=== PATIENT | male | born 1970 | race Caucasian/White ===

== ENCOUNTER → 2020-08-03 10:26 | Outpatient (BNVA) | payer MEDICARE, MEDICAID, SELFPAY | PROVIDERS: Family Provider Family Medicine; Visit Provider Family Medicine | DX: E78.5 Hyperlipidemia, unspecified (principal); Z23 Encounter for immunization; F33.1 Major depressive disorder, recurrent, moderate; K21.9 Gastro-esophageal reflux disease without esophagitis; G43.709 Chronic migraine without aura, not intractable, without status migrainosus; E78.2 Mixed hyperlipidemia; Z87.898 Personal history of other specified conditions; Z13.1 Encounter for screening for diabetes mellitus; K86.89 Other specified diseases of pancreas | CPT/HCPCS: 80053; 80061 ==

== ENCOUNTER → 2021-05-16 08:31 | Outpatient (BNVA) | payer MEDICARE, MEDICAID, SELFPAY | PROVIDERS: Family Provider Family Medicine; Visit Provider Specialist | DX: G56.03 Carpal tunnel syndrome, bilateral upper limbs (principal); G56.23 Lesion of ulnar nerve, bilateral upper limbs | CPT/HCPCS: 95885; 95910; 99202 ==

== ENCOUNTER → 2021-08-28 10:45 | Outpatient (BNVA) | payer MEDICARE, MEDICAID, SELFPAY | PROVIDERS: Family Provider Family Medicine; Visit Provider Family Medicine | DX: E78.2 Mixed hyperlipidemia (principal); Z13.1 Encounter for screening for diabetes mellitus | CPT/HCPCS: 80053; 80061 ==

== ENCOUNTER 2023-08-11 20:00 | Outpatient (CLI) | payer MEDICARE, MEDICAID, SELFPAY | END 2023-08-11 20:01 | disposition home or self-care (01) | LOC: SLEEP 08-12 06:14 | PROVIDERS: Family Provider Family Medicine; Visit Provider Family Medicine | DX: G47.10 Hypersomnia, unspecified (principal); R06.83 Snoring; R53.83 Other fatigue | CPT/HCPCS: 95810 ==

== ENCOUNTER 2023-12-16 13:07 | Emergency (ER) | payer MEDICARE, MEDICAID, SELFPAY ==
[2023-12-16] VITALS (33 sets, daily range): BP systolic 117–158; BP diastolic 68–95; PULSE 93–115; RESP 14–29; TEMP 36.8; O2SAT 90–94; BMI 25.1
--- NOTE | 2023-12-16 13:08 | XRR_ITS ---
PROCEDURE INFORMATION: Exam: XR Chest Exam date and time: 12/16/2023 1:37 PM Age: 53 years old Clinical indication: Pain; Angina pectoris; Additional info: Chest pain TECHNIQUE: Imaging protocol: Radiologic exam of the chest. Views: 1 view. COMPARISON: No relevant prior studies available. FINDINGS: Lungs: Left lung grossly clear. Pleural spaces: Large right pneumothorax with near total collapse of the right lung. Heart/Mediastinum: Leftward mediastinal shift and probable mild right hemidiaphragm flattening. Bones/joints: No acute findings. XR/XR chest 1V portable [id number] IMPRESSION: Large right pneumothorax with leftward mediastinal shift suggesting tension.
--- NOTE | 2023-12-16 13:09 | ECG_ITS ---
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 Measurements Intervals [place] Rate: 98 P: 93 [place]: 123 QRS: 39 QRSD: 89 T: 61 QT: 362 QTc: 464 Interpretive Statements SINUS RHYTHM NONSPECIFIC T-WAVE ABNORMALITY No previous ECG available for comparison Electronically Signed On 12-16-2023 19:52:51 ACADEMIC SPECIALIST by Robby Boykin M.D. [id number]
--- NOTE | 2023-12-16 13:13 | ED_ITS ---
Documented by User: BROOKE Cordero 12/16/23 16:03 HPI - URI/Sore Throat 2 General: Chief Complaint: Upper Respiratory Infection Stated Complaint: CHEST PAIN Time Seen by Provider: 12/16/23 13:08 Source: patient and EMS Mode of arrival: EMS Limitations: no limitations History of Present Illness: Patient is a 53-year-old male who presents to ED today with a complaint of right upper chest pain present only when coughing. Patient states he has had a cough over the past 2 to 3 weeks. He states he saw his primary care provider today Dr. Gray who recommended he come to the ED for further testing and told him he has pneumonia. EMS reports that patient went home and then called 911 to bring him to the emergency department. Upon arrival patient appears in no acute distress. He denies previous cardiac or pulmonary history. He does report he was around a niece of his with similar cough like symptoms. He has not been running fevers. He has had the right chest pain for about 3-4 days now. PMH is significant for allergies and acid reflux. MD elicited complaint: cough and other (chest pain) Onset (ago): day(s) Consistency: intermittent (chest pain only with coughing) Severity: moderate Able to tolerate fluids by mouth: Yes Exacerbating factors: other (coughing) Relieving factors: nothing Context: sick contacts Associated symptoms: Reports chest pain and cough; Deny abdominal pain, chills, diarrhea, fever(s), headache(s), nasal congestion, nausea, sinus pain or vomiting Treatments prior to arrival: none Review of Systems 2 Const: Denies: fever(s), chills, body aches, fatigue or malaise ENMT: Denies: throat pain, odynophagia, nasal discharge, nasal congestion or sinus pain Card: Reports: chest pain; Denies: palpitations, irregular heart rhythm, edema, swelling of feet/ankles, lightheadedness, syncope, pre-syncope, dyspnea on exertion, orthopnea, leg pain with exertion or acrocyanosis Resp: Reports: non-productive cough and chest congestion; Denies: dyspnea, wheezing, stridor or hemoptysis GI: Denies: abdominal pain, nausea, vomiting or diarrhea : Denies: flank pain, dysuria or hematuria Musc: Denies: neck pain, back pain, extremity pain or joint pain Skin/Breast: Denies: rash Neuro: Denies: headache(s), numbness in extremities, weakness in extremities, sensory changes or dizziness PFSH ED 2 PFSH: Medical History Chronic migraine Hyperlipidemia Major depression GERD (gastroesophageal reflux disease) Family History Other Cancer Heart disease Social History Smoking and tobacco/nicotine status: never used tobacco/nicotine Alcohol intake: never Substance/Drug Use: never Physical Exam 2 Const: COMMON NORMALS: no acute distress, average body habitus, patient oriented x3, no limitations, alert and well nourished GENERAL APPEARANCE: c ooperative ORIENTATION/CONSCIOUSNESS: Yes awake, Yes oriented to person, Yes oriented to place and Yes oriented to time HENMT: COMMON NORMALS: normocephalic and atraumatic HEAD & SCALP: normal to inspection, normocephalic and atraumatic FACE & SINUS: normal facial exam and sinuses nontender Eye: GENERAL EYE: appearance normal, both eyes and all related structures Neck/C-Spine: COMMON NORMALS: full ROM, no lymphadenopathy, supple and no meningeal signs Chest: COMMONS NORMALS: normal inspection of the chest and normal palpation of entire chest wall Resp: COMMON NORMALS: normal respiratory effort AUSCULTATION: diminished lung sounds on the right (absent lung sounds throughout R side concerning for pneumo) Cardio: COMMON NORMALS: regular rate and regular rhythm RATE: regular rate RHYTHM: regular rhythm GI: COMMON NORMALS: Normal to inspection, nondistended, normoactive bowel sounds present, Soft to palpation, non-tender, No hepatosplenomegaly present and no masses PALPATION: Yes Soft to palpation and Yes No hepatosplenomegaly present : COMMON NORMALS: Yes no CVA tenderness BLADDER/KIDNEY EXAM: Yes no CVA tenderness Back/Pelvis: COMMON NORMALS: no CVA tenderness and thoracic and lumbar spine normal to inspection Extremity: COMMON NORMALS: normal to inspection, capillary refill normal, no clubbing, cyanosis or edema, no calf tenderness and no pedal edema GENERAL: Y es normal exam except as noted Neuro: COMMON NORMALS: patient oriented x3, moves all extremities, no focal motor deficits and no sensory deficits noted SENSORIUM/ORIENTATION: Yes alert, Yes oriented to person, Yes oriented to place and Yes oriented to time MENINGEAL SIGNS: Yes no meningeal signs Skin: COMMON NORMALS: no rashes or lesions noted GENERAL SKIN EXAM: no rashes or lesions noted Course 2 Consultations: Consultation #1: [facility] accepts direct admission; admitting physician is Dr. Kay Vital Signs: Vital signs: Vital Signs Temperature 98.3 F 12/16/23 13:09 Pulse Rate 110 H 12/16/23 14:49 Respiratory Rate 14 12/16/23 14:37 Blood Pressure 133/76 12/16/23 14:49 Pulse Oximetry 94 12/16/23 14:49 Oxygen Delivery Me thod Room Air 12/16/23 14:49 MDM - URI/Sore Throat Medical Decision Making Patient is a 53-year-old male here for a right-sided pneumothorax/tension pneumo. Thoravent placed by Dr. Powell. Please see his documentation regarding procedure. 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 Lab Data 12/16/23 13:21 12/16/23 13:21 Laboratory Results WBC 7.08 10^3/uL (3.29-11.43) 12/16/23 13:21 RBC 5.46 10^6/uL (3.85-5.65) 12/16/23 13:21 Hgb 15.60 g/dL (11.27-16.99) 12/16/23 13:21 Hct 47.0 % (37-53) 12/16/23 13:21 MCV 86.1 fl (82-101) 12/16/23 13:21 MCH 28.6 pg (27-33) 12/16/23 13:21 MCHC 33.2 g/dL (30-55) 12/16/23 13:21 RDW 14.2 % (12.1-15.1) 12/16/23 13:21 Plt Count 404 10^3/cmm (157-399) H 12/16/23 13:21 MPV 9.4 fL (7.4-10.4) 12/16/23 13:21 Neut % (Auto) 73.7 % 12/16/23 13:21 Lymph % (Auto) 13.3 % 12/16/23 13:21 [place] % (Auto) 11.0 % 12/16/23 13:21 Eos % (Auto) 1.3 % 12/16/23 13:21 Baso % (Auto) 0.4 % 12/16/23 13:21 Neut # (Auto) 5.22 10^3/uL (1.8-7.7) 12/16/23 13:21 Lymph # (Auto) 0.9 10^3/uL (0.8-4.8) 12/16/23 13:21 [place] # (Auto) 0.8 10^3/uL (0.2-0.9) 12/16/23 13:21 Eos # (Auto) 0.1 10^3/uL (0.0-0.8) 12/16/23 13:21 Baso # (Auto) 0.0 10^3/uL (0.0-0.1) 12/16/23 13:21 Nucleated RBC % (auto) 0 % 12/16/23 13:21 Nucleated RBCs # 0.0 /100WBC 12/16/23 13:21 Sodium 137 mmol/L (136-145) 12/16/23 13:21 Potassium 4.1 mmol/L (3.5-5.1) 12/16/23 13:21 Chloride 102 mmol/L (98-107) 12/16/23 13:21 Carbon Dioxide 23 mmol/L (22-29) 12/16/23 13:21 Anion Gap 16.1 (5-19) 12/16/23 13:21 BUN 13 mg/dL (6-20) 12/16/23 13:21 Creatinine 0.6 mg/dL (0.7-1.2) L 12/16/23 13:21 GFR Calculation 142.0 mL/min (90-130) H 12/16/23 13:21 Glucose 119 mg/dL (65-115) H 12/16/23 13:21 Calculated Osmolality 285 mOsm/kg (285-295) 12/16/23 13:21 Calcium 9.2 mg/dL (8.5-10.5) 12/16/23 13:21 Total Bilirubin 0.5 mg/dL (0.15-1.2) 12/16/23 13:21 AST 22 U/L (0-40) 12/16/23 13:21 ALT 27 U/L (0-41) 12/16/23 13:21 Alkaline Phosphatase 65 U/L (40-130) 12/16/23 13:21 Troponin T Baseline < 6 ng/L (0-15) 12/16/23 13:21 Total Protein 6.6 g/dL (6.6-8.7) 12/16/23 13:21 Albumin 3.9 g/dL (3.5-5.2) 12/16/23 13:21 Globulin 2.7 g/dL (1.3-4.6) 12/16/23 13:21 All radiology interpretation(s) finalized by discharge Discharge Plan Discharge Patient Disposition: Xfer Short-Term Hosp Clinical Impression: Pneumothorax Qualifiers: Pneumothorax type: unspecified pneumothorax Qualified Code(s): J93.9 - Pneumothorax, unspecified Condition: Stable Referrals: Berta Quan MD [Physician] - Coding Level of Care Code ED Junior Technical Writer for Chg Fwd Documented by User: Megan Powell MD 12/16/23 16:10 HPI - URI/Sore Throat 2 General: Chief Complaint: Upper Respiratory Infection Stated Complaint: CHEST PAIN Time Seen by Provider: 12/16/23 13:08 PFS ED 2 PFSH: Medical History Chronic migraine Hyperlipidemia Major depression GERD (gastroesophageal reflux disease) Family History Other Cancer Heart disease Social History Smoking and tobacco/nicotine status: never used tobacco/nicotine Alcohol intake: never Substance/Drug Use: never Procedures Chest Tube Chest Tube 1: Chest Tube Location: right Size of Tube (cm): 13 Chest Tube Prep: Yes betadine prep Amount of anesthesia used (mL): 5 Incision Made With: #11 blade Post Procedure CXR?: Yes Patient Tolerated Procedure: Yes Progress: thoracvent placed in midclavicular line second intercostal space Course 2 Vital Signs: Vital signs: Vital Signs Temperature 98.3 F 12/16/23 13:09 Pulse Rate 110 H 12/16/23 14:49 Respiratory Rate 14 12/16/23 14:37 Blood Pressure 133/76 12/16/23 14:49 Pulse Oximetry 94 12/16/23 14:49 Oxygen Delivery Me thod Room Air 12/16/23 14:49 MDM - URI/Sore Throat Medical Decision Making Patient is a 53-year-old male here for a right-sided pneumothorax/tension pneumo. Thoravent placed by Dr. Powell. Please see his documentation regarding procedure. Patient has been accepted to 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 I had seen patient with midlevel I placed a Thora vent here with good reexpansion of his lung will transfer due to no one available to manage the chest tube here Lab Data 12/16/23 13:21 12/16/23 13:21 Laboratory Results WBC 7.08 10^3/uL (3.29-11.43) 12/16/23 13:21 RBC 5.46 10^6/uL (3.85-5.65) 12/16/23 13:21 Hgb 15.60 g/dL (11.27-16.99) 12/16/23 13:21 Hct 47.0 % (37-53) 12/16/23 13:21 MCV 86.1 fl (82-101) 12/16/23 13:21 MCH 28.6 pg (27-33) 12/16/23 13:21 MCHC 33.2 g/dL (30-55) 12/16/23 13:21 RDW 14.2 % (12.1-15.1) 12/16/23 13:21 Plt Count 404 10^3/cmm (157-399) H 12/16/23 13:21 MPV 9.4 fL (7.4-10.4) 12/16/23 13:21 Neut % (Auto) 73.7 % 12/16/23 13:21 Lymph % (Auto) 13.3 % 12/16/23 13:21 [place] % (Auto) 11.0 % 12/16/23 13:21 Eos % (Auto) 1.3 % 12/16/23 13:21 Baso % (Auto) 0.4 % 12/16/23 13:21 Neut # (Auto) 5.22 10^3/uL (1.8-7.7) 12/16/23 13:21 Lymph # (Auto) 0.9 10^3/uL (0.8-4.8) 12/16/23 13:21 [place] # (Auto) 0.8 10^3/uL (0.2-0.9) 12/16/23 13:21 Eos # (Auto) 0.1 10^3/uL (0.0-0.8) 12/16/23 13:21 Baso # (Auto) 0.0 10^3/uL (0.0-0.1) 12/16/23 13:21 Nucleated RBC % (auto) 0 % 12/16/23 13:21 Nucleated RBCs # 0.0 /100WBC 12/16/23 13:21 Sodium 137 mmol/L (136-145) 12/16/23 13:21 Potassium 4.1 mmol/L (3.5-5.1) 12/16/23 13:21 Chloride 102 mmol/L (98-107) 12/16/23 13:21 Carbon Dioxide 23 mmol/L (22-29) 12/16/23 13:21 Anion Gap 16.1 (5-19) 12/16/23 13:21 BUN 13 mg/dL (6-20) 12/16/23 13:21 Creatinine 0.6 mg/dL (0.7-1.2) L 12/16/23 13:21 GFR Calculation 142.0 mL/min (90-130) H 12/16/23 13:21 Glucose 119 mg/dL (65-115) H 12/16/23 13:21 Calculated Osmolality 285 mOsm/kg (285-295) 12/16/23 13:21 Calcium 9.2 mg/dL (8.5-10.5) 12/16/23 13:21 Total Bilirubin 0.5 mg/dL (0.15-1.2) 12/16/23 13:21 AST 22 U/L (0-40) 12/16/23 13:21 ALT 27 U/L (0-41) 12/16/23 13:21 Alkaline Phosphatase 65 U/L (40-130) 12/16/23 13:21 Troponin T Baseline < 6 ng/L (0-15) 12/16/23 13:21 Total Protein 6.6 g/dL (6.6-8.7) 12/16/23 13:21 Albumin 3.9 g/dL (3.5-5.2) 12/16/23 13:21 Globulin 2.7 g/dL (1.3-4.6) 12/16/23 13:21 Critical Care Time 2 Critical Care Time: Critical Care Time: Yes Total Critical Care Time: 35 Attestation: The high probability of a clinically significant, sudden or life threatening deterioration of the patient's resp system(s) required my full and direct attention, intervention and personal management. The critical care time is as shown. This time is in addition to time spent performing any reported procedures but includes the following: [x] Data and vital sign review and interpretation [x] Patient assessment, examination and intervention [x] Documentation [x] Medication orders and management Discharge Plan Discharge Patient Disposition: Xfer Short-Term Hosp Clinical Impression: Pneumothorax Qualifiers: Pneumothorax type: unspecified pneumothorax Qualified Code(s): J93.9 - Pneumothorax, unspecified Condition: Stable Referrals: Berta Quan MD [Physician] - Coding Level of Care Code ED Junior Technical Writer for Ashish Gonzales
[2023-12-16 13:35] LABS: Basophils % 0.4 %; Eosinophils # 0.1 10^3/uL (0.0-0.8); Eosinophils % 1.3 %; Lymphocytes # 0.9 10^3/uL (0.8-4.8); Lymphocytes % 13.3 %; Mean Corpuscular HGB Conc 33.2 g/dL (30-55); Mean Corpuscular Hemoglobin 28.6 pg (27-33); Mean Corpuscular Volume 86.1 fl (82-101); Mean Platelet Volume 9.4 fL (7.4-10.4); Monocytes # 0.8 10^3/uL (0.2-0.9); Neutrophils # 5.22 10^3/uL (1.8-7.7); Neutrophils % 73.7 %; Nucleated Red Blood Cells % 0 %; Platelet Count 404 10^3/cmm (157-399); Red Blood Count 5.46 10^6/uL (3.85-5.65); Red Cell Distribution Width 14.2 % (12.1-15.1); White Blood Count 7.08 10^3/uL (3.29-11.43)
[2023-12-16 13:47] LABS: Troponin(5th) Baseline < 6 ng/L (0-15)
[2023-12-16 13:57] LABS: Alanine Aminotransferase 27 U/L (0-41); Albumin Level 3.9 g/dL (3.5-5.2); Alkaline Phosphatase 65 U/L (40-130); Anion Gap 16.1 (5-19); Aspartate Amino Transferase 22 U/L (0-40); Blood Urea Nitrogen 13 mg/dL (6-20); Calcium 9.2 mg/dL (8.5-10.5); Carbon Dioxide 23 mmol/L (22-29); Chloride 102 mmol/L (98-107); Globulin 2.7 g/dL (1.3-4.6); Glucose 119 mg/dL (65-115); Osmolality Calculated 285 mOsm/kg (285-295); Potassium 4.1 mmol/L (3.5-5.1); Sodium 137 mmol/L (136-145); Total Bilirubin 0.5 mg/dL (0.15-1.2); Total Protein 6.6 g/dL (6.6-8.7)
--- NOTE | 2023-12-16 14:34 | XRR_ITS ---
PROCEDURE INFORMATION: Exam: XR Chest Exam date and time: 12/16/2023 2:41 PM Age: 53 years old Clinical indication: Device placement; Other: Post chest tube; Prior surgery; Surgery date: Post-operative (0-2 days) TECHNIQUE: Imaging protocol: Radiologic exam of the chest. Views: 2 views. COMPARISON: CR XR chest 1V portable [id number] 12/16/2023 1:37 PM FINDINGS: Interval placement of right-sided chest tube. Lungs: No consolidation. Pleural spaces: Improved right pneumothorax now small and approximately 2 cm from the apex chest wall. Heart/Mediastinum: Slightly less conspicuous leftward mediastinal deviation although this may be accounted for by patient positioning. Bones/joints: No acute findings. XR/XR chest 2V* [id number] IMPRESSION: Small residual right apical pneumothorax status post chest tube placement.
[2023-12-16] MEDS: LORazepam 2 mg/mL INJ 10 mL MDV 1 MG IVP (14:36)
[2023-12-16] MEDS: morphine 4 mg/mL SDV 1 mL IVP (14:37)
--- NOTE | 2023-12-16 15:09 | ECG_ITS ---
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 Measurements Intervals [place] Rate: 109 P: 31 VT: 120 QRS: 2 QRSD: 89 T: 40 QT: 335 QTc: 451 Interpretive Statements SINUS TACHYCARDIA NONSPECIFIC T-WAVE ABNORMALITY ABNORMAL RHYTHM ECG Compared to ECG 12/16/2023 13:23:13 Sinus rhythm no longer present T-wave abnormality still present Electronically Signed On 12-16-2023 20:17:20 CLINICAL CYTOGENETICIST SCIENTIST by Robby Boykin M.D. [id number]
[2023-12-16 16:40] LABS: Adenovirus Not Detected (NOT DETECT); Chlamydia Pneumoniae Not Detected (NOT DETECT); Coronavirus 229E,HKU1,NL63,OC4 Not Detected (NOT DETECT); Human Metapneumovirus Not Detected (NOT DETECT); Human Rhinovirus/Enterovirus Not Detected (NOT DETECT); Influenza A Not Detected (NOT DETECT); Influenza A H1 Not Detected (NOT DETECT); Influenza A H1-2009 Not Detected (NOT DETECT); Influenza A H3 Not Detected (NOT DETECT); Influenza B Not Detected (NOT DETECT); Mycoplasma Pneumoniae Not Detected (NOT DETECT); Parainfluenza Virus Type 1 Not Detected (NOT DETECT); Parainfluenza Virus Type 2 Not Detected (NOT DETECT); Parainfluenza Virus Type 3 Not Detected (NOT DETECT); Parainfluenza Virus Type 4 Not Detected (NOT DETECT); Respiratory Syncytial Virus A Not Detected (NOT DETECT); SARS-COV-2 Not Detected (NOT DETECT)
[2023-12-16 16:51] LABS: Respiratory Syncytial Virus B Detected (NOT DETECT)
[2023-12-16 17:15] LABS: Troponin 5 2HR Delta 0.00001 ABS# (0-10)
--- NOTE | 2023-12-16 18:51 | XRR_ITS ---
PROCEDURE INFORMATION: Exam: XR Chest Exam date and time: 12/16/2023 6:55 PM Age: 53 years old Clinical indication: Device placement; Chest tube; Additional info: Re-eval thoravent TECHNIQUE: Imaging protocol: Radiologic exam of the chest. Views: 1 view. COMPARISON: CR XR chest 2V* [id number] 16/12/2023 14:41 FINDINGS: Tubes, catheters and devices: Stable right pleural drain. Lungs: Stable probable discoid atelectasis transversing the right mid lung. No consolidation. Pleural spaces: Slightly improved small right apical pneumothorax. Heart/Mediastinum: Unremarkable. No cardiomegaly. Bones/joints: Unremarkable. XR/XR chest 1V portable [id number] IMPRESSION: 1. Slightly improved small right apical pneumothorax.
--- NOTE | 2023-12-16 19:09 | ECG_ITS ---
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 Measurements Intervals [place] Rate: 104 P: 48 [place]: 139 QRS: 10 QRSD: 85 T: 50 QT: 346 QTc: 456 Interpretive Statements SINUS TACHYCARDIA POSSIBLE LEFT ATRIAL ENLARGEMENT [-0.1mV P-WAVE IN V1/V2] NONSPECIFIC T-WAVE ABNORMALITY ABNORMAL RHYTHM ECG Compared to ECG 12/16/2023 16:20:56 No significant changes Electronically Signed On 12-16-2023 20:19:12 DRONE PILOT by Robby Boykin M.D. [id number]
[2023-12-16 20:10] LABS: Troponin 5 6HR Delta 0.00001 ng/L (0-12)
[2023-12-17] VITALS: BP 135/84; PULSE 117; RESP 27; O2SAT 91
[2023-12-17 00:15] VITALS: BP 138/84; PULSE 118; RESP 26; O2SAT 91
[2023-12-17 00:30] VITALS: BP 145/77; PULSE 117; RESP 30; O2SAT 90
[2023-12-17 00:45] VITALS: BP 144/102; PULSE 107; RESP 31; O2SAT 91
[2023-12-17 01:00] VITALS: BP 144/89; PULSE 112; RESP 29
[2023-12-17 01:11] VITALS: BP 132/95; PULSE 108; RESP 24; O2SAT 92
== END 2023-12-17 01:22 | disposition short-term general hospital (02) ==
PROVIDERS: Emergency Provider Physician Assistant
DX: J93.9 Pneumothorax, unspecified (principal); E78.5 Hyperlipidemia, unspecified
CPT/HCPCS: 32551; 36415; 71045; 71046; 80053; 84484; 85025; 87486; 87581; 87633; 93005; 96374; 96375; 99285; J2060; J2270

== ENCOUNTER 2024-05-07 21:03 | Emergency (ER) | payer MEDICARE, MEDICAID, SELFPAY ==
[2024-05-07 21:04] VITALS: BP 139/92; PULSE 85; RESP 16; TEMP 37.1; O2SAT 97; BMI 25.1
--- NOTE | 2024-05-07 21:08 | ECG_ITS ---
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 Measurements Intervals [place] Rate: 72 P: 19 VT: 151 QRS: -5 QRSD: 94 T: 34 QT: 369 QTc: 406 Interpretive Statements SINUS RHYTHM MODERATE ST DEPRESSION [0.05+ mV ST DEPRESSION] Compared to ECG 12/16/2023 19:11:57 ST (T wave) deviation now present Sinus tachycardia no longer present T-wave abnormality no longer present Electronically Signed On 05-08-2024 21:34:25 CDT by Aleksander Barksdale M.D. [id number]
--- NOTE | 2024-05-07 21:30 | XRR_ITS ---
PROCEDURE INFORMATION: Exam: XR Chest Exam date and time: 05/07/2024 9:38 PM Age: 54 years old Clinical indication: Shortness of breath; Prior surgery; Surgery date: 1-6 months; Surgery type: Previously had a port on right side. ; Additional info: Cp TECHNIQUE: Imaging protocol: Radiologic exam of the chest. Views: 1 view. COMPARISON: CR XR chest 1V portable [id number] 12/16/2023 6:55 PM FINDINGS: Lungs: Unremarkable. No consolidation. Pleural spaces: Unremarkable. No pleural effusion. No pneumothorax. Heart/Mediastinum: Unremarkable. No cardiomegaly. Bones/joints: Unremarkable. XR/XR chest 1V portable [id number] IMPRESSION: No acute findings.
[2024-05-07 21:35] LABS: Basophils % 0.5 %; Eosinophils # 0.2 10^3/uL (0.0-0.8); Eosinophils % 3.3 %; Hematocrit 41.4 % (37-53); Lymphocytes % 33.8 %; Mean Corpuscular HGB Conc 34.1 g/dL (30-55); Mean Corpuscular Hemoglobin 28.7 pg (27-33); Mean Corpuscular Volume 84.1 fl (82-101); Mean Platelet Volume 9.6 fL (7.4-10.4); Monocytes # 0.6 10^3/uL (0.2-0.9); Monocytes % 10.8 %; Neutrophils # 2.99 10^3/uL (1.8-7.7); Neutrophils % 51.4 %; Nucleated Red Blood Cells % 0 %; Platelet Count 327 10^3/cmm (157-399); Red Blood Count 4.92 10^6/uL (3.85-5.65); Red Cell Distribution Width 13.6 % (12.1-15.1); White Blood Count 5.82 10^3/uL (3.29-11.43)
[2024-05-07 21:55] LABS: Troponin(5th) Baseline < 6 ng/L (0-15)
[2024-05-07 22:04] LABS: Alanine Aminotransferase 16 U/L (0-41); Albumin Level 3.9 g/dL (3.5-5.2); Alkaline Phosphatase 53 U/L (40-130); Anion Gap 12.8 (5-19); Aspartate Amino Transferase 16 U/L (0-40); Blood Urea Nitrogen 12 mg/dL (6-20); Carbon Dioxide 23 mmol/L (22-29); Chloride 107 mmol/L (98-107); Globulin 2.4 g/dL (1.3-4.6); Glomerular Filtration Rate 118.4 mL/min (90-130); Glucose 109 mg/dL (65-115); NT Pro B Type Natriuretic Pept 63 pg/mL (0-125); Osmolality Calculated 288 mOsm/kg (285-295); Potassium 3.8 mmol/L (3.5-5.1); Sodium 139 mmol/L (136-145); Total Bilirubin 0.2 mg/dL (0.15-1.2); Total Protein 6.3 g/dL (6.6-8.7)
[2024-05-07 22:33] VITALS: RESP 18; O2SAT 98
[2024-05-07] MEDS: ketorolac 30 mg/mL INJ IVP (22:33)
[2024-05-07] MEDS: ondansetron 2 mg/ML SDV 2 mL 4 MG IVP (22:33)
[2024-05-07] MEDS: morphine 4 mg/mL SDV 1 mL IVP (22:33)
[2024-05-07 22:46] VITALS: BP 115/84; PULSE 79; RESP 24; O2SAT 99
--- NOTE | 2024-05-07 23:19 | ED_ITS ---
HPI - Chest Pain 2 General: Chief Complaint: Chest Pain Stated Complaint: chest discomfort Time Seen by Provider: 05/07/24 21:08 History of Present Illness: 54-year-old male with a history of right -sided pneumothorax. He presents with left-sided pleuritic type chest discomfort. He notes that it is sharp and burning. Since he has arrived, left-sided chest pain is resolved, and replaced by right-sided chest pain. Patient states that the right-sided chest pain is sharper. Nonradicular. No fever. No cough. Concerned due to previous history of spontaneous pneumothorax. He is not short of breath. Associated symptoms: Deny abdominal pain, dyspnea, fever(s), nausea, palpitations or vomiting Review of Systems 2 Const: Denies: fever(s), chills or body aches Eyes: Denies: change in vision Card: Denies: palpitations Resp: Denies: dyspnea, productive cough, non-productive cough or wheezing GI: Denies: abdominal pain, nausea, vomiting, diarrhea or hematochezia Skin/Breast: Denies: rash Neuro: Denies: headache(s), weakness in extremities, dizziness or confusion PFSH ED 2 PFSH: Medical History Chronic migraine Hyperlipidemia Major depression GERD (gastroesophageal reflux disease) Family History Other Cancer Heart disease Social History Smoking and tobacco/nicotine status: never used tobacco/nicotine Alcohol intake: never Substance/Drug Use: never Physical Exam 2 Const: COMMON NORMALS: no acute distress GENERAL APPEARANCE: cooperative; not ill appearing and not frail appearing HENMT: COMMON NORMALS: normocephalic, atraumatic and Normal external nose present HEAD & SCALP: normocephalic and atraumatic FACE & SINUS: normal facial exam and face symmetric NOSE: Normal external nose present Eye: COMMON NORMALS: Equal, round and reactive pupils present and EOMs intact bilaterally PUPIL: Yes Equal, round and reactive pupils present Neck/C-Spine: GENERAL: Yes trachea midline Chest: CHEST: Yes Symmetrical chest wall rise and Yes tenderness (Anterior and lateral chest wall, right greater than left) Resp: COMMON NORMALS: normal respiratory effort, No retractions, No use of accessory muscles and clear to auscultation bilaterally AUSCULTATION: clear to auscultation bilaterally Cardio: COMMON NORMALS: regular rate and regular rhythm RATE: regular rate RHYTHM: regular rhythm GI: COMMON NORMALS: Normal to inspection, nondistended, normoactive bowel sounds present Extremity: COMMON NORMALS: no pedal edema Neuro: [place] COMA SCALE: document GCS findings [place] coma scale eye opening: Spontaneous [place] coma scale verbal response: Orientated [place] coma scale motor response: Obey commands [place] coma scale total score: 15 S ENSORY EXAM: Yes extremities (intact) Psych: COMMON NORMALS: speech normal SPEECH: Yes normal speech Skin: COMMON NORMALS: no rashes or lesions noted GENERAL SKIN EXAM: no rashes or lesions noted Course 2 Vital Signs: Vital signs: Vital Signs Temperature 98.7 F 05/07/24 21:04 Pulse Rate 79 05/07/24 22:46 Respiratory Rate 24 H 05/07/24 22:46 Blood Pressure 115/84 05/07/24 22:46 Pulse Oximetry 99 05/07/24 22:46 Oxygen Delivery Me thod Room Air 05/07/24 22:46 MDM - Chest Pain Medical Decision Making Pain is reproducible on palpation. Chest x-ray does not reveal any findings including pneumothorax, infiltrate etc. CBC BMP are normal. Troponin is less than 6, nondetectable. BNP is 63. He is nontachycardic. He is not hypoxic. He is improved after medication. Will be allowed home. Lab Data 05/07/24 21:18 05/07/24 21:18 Radiology Impressions Chest X-Ray 05/07/24 21:30 IMPRESSION: No acute findings. Laboratory Results WBC 5.82 10^3/uL (3.29-11.43) 05/07/24 21:18 RBC 4.92 10^6/uL (3.85-5.65) 05/07/24 21:18 Hgb 14.10 g/dL (11.27-16.99) 05/07/24 21:18 Hct 41.4 % (37-53) 05/07/24 21:18 MCV 84.1 fl (82-101) 05/07/24 21:18 MCH 28.7 pg (27-33) 05/07/24 21:18 MCHC 34.1 g/dL (30-55) 05/07/24 21:18 RDW 13.6 % (12.1-15.1) 05/07/24 21:18 Plt Count 327 10^3/cmm (157-399) 05/07/24 21:18 MPV 9.6 fL (7.4-10.4) 05/07/24 21:18 Neut % (Auto) 51.4 % 05/07/24 21:18 Lymph % (Auto) 33.8 % 05/07/24 21:18 [place] % (Auto) 10.8 % 05/07/24 21:18 Eos % (Auto) 3.3 % 05/07/24 21:18 Baso % (Auto) 0.5 % 05/07/24 21:18 Neut # (Auto) 2.99 10^3/uL (1.8-7.7) 05/07/24 21:18 Lymph # (Auto) 2.0 10^3/uL (0.8-4.8) 05/07/24 21:18 [place] # (Auto) 0.6 10^3/uL (0.2-0.9) 05/07/24 21:18 Eos # (Auto) 0.2 10^3/uL (0.0-0.8) 05/07/24 21:18 Baso # (Auto) 0.0 10^3/uL (0.0-0.1) 05/07/24 21:18 Nucleated RBC % (auto) 0 % 05/07/24 21:18 Nucleated RBCs # 0.0 /100WBC 05/07/24 21:18 Sodium 139 mmol/L (136-145) 05/07/24 21:18 Potassium 3.8 mmol/L (3.5-5.1) 05/07/24 21:18 Chloride 107 mmol/L (98-107) 05/07/24 21:18 Carbon Dioxide 23 mmol/L (22-29) 05/07/24 21:18 Anion Gap 12.8 (5-19) 05/07/24 21:18 BUN 12 mg/dL (6-20) 05/07/24 21:18 Creatinine 0.7 mg/dL (0.7-1.2) 05/07/24 21:18 GFR Calculation 118.4 mL/min (90-130) 05/07/24 21:18 Glucose 109 mg/dL (65-115) 05/07/24 21:18 Calculated Osmolality 288 mOsm/kg (285-295) 05/07/24 21:18 Calcium 9.0 mg/dL (8.5-10.5) 05/07/24 21:18 Total Bilirubin 0.2 mg/dL (0.15-1.2) 05/07/24 21:18 AST 16 U/L (0-40) 05/07/24 21:18 ALT 16 U/L (0-41) 05/07/24 21:18 Alkaline Phosphatase 53 U/L (40-130) 05/07/24 21:18 Troponin T Baseline < 6 ng/L (0-15) 05/07/24 21:18 NT-Pro-B Natriuret Pep 63 pg/mL (0-125) 05/07/24 21:18 Total Protein 6.3 g/dL (6.6-8.7) L 05/07/24 21:18 Albumin 3.9 g/dL (3.5-5.2) 05/07/24 21:18 Globulin 2.4 g/dL (1.3-4.6) 05/07/24 21:18 All radiology interpretation(s) finalized by discharge Discharge Plan Discharge Patient Disposition: Home Clinical Impression: Atypical chest pain Prescriptions: New ketorolac 10 mg tablet 10 mg PO TID PRN (Reason: pain) Qty: 10 0RF No Action topiramate 25 mg tablet 25 mg PO BID 90 Days Qty: 180 1RF amoxicillin 500 mg capsule 500 mg PO Q12H sumatriptan succinate 50 mg tablet See Rx Instructions .ROUTE .COMPLEX Rx Instructions: TAKE 1 TABLET BY MOUTH NEEDED AT ONSET OF MIGRAINE. Tessalon Perles 100 mg Capsule 100 mg PO TID PRN (Reason: Cough) esomeprazole magnesium 40 mg capsule,delayed release(DR/EC) 40 mg PO DAILY Discharge Orders: Discharge ED (Routine); Ordered 05/07/24 Ordered By: David Gamino Patient Instructions: Chest Wall Pain (ED), Opioid Safety, Pain Management Activity Restrictions/Additional Instructions: Medication as directed. Return to the emergency department for worsening pain despite treatment, shortness of breath, fever, cough, other concerning symptoms. See your doctor next week. 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
== END 2024-05-08 00:08 | disposition home or self-care (01) ==
PROVIDERS: Emergency Provider Emergency Medicine; PCP Orthopaedic Surgery
DX: R07.89 Other chest pain (principal); E78.5 Hyperlipidemia, unspecified
CPT/HCPCS: 71045; 80053; 83880; 84484; 85025; 93005; 96374; 96375; 99285; J1885; J2270; J2405